=== PATIENT | female | born 1975 | race Caucasian/White ===

== ENCOUNTER 2018-06-17 07:47 | Emergency (ER) | payer BC ==
[~2018-06-17] VITALS: Ht 162.6 cm; Wt 60.3 kg
[~2018-06-17 07:47] MED LIST: ESTR2 PO; HYOS.125 SL; IBUP600 PO; LINZESS145 MCG PO; NORT25 PO; Naltrexone HCl50 MG PO; OMEP20ER PO; ONDA4ODT MM; OXYACE5T PO; PARO10 PO; PRED20 PO; RXOXYACE PO; TRAM50 PO
[2018-06-17] MEDS ORDERED: DICL75ER PO (08:32)
== END 2018-06-17 09:37 | disposition home or self-care (01) ==
LOC: ER 07:47
DX: R53.81 Other malaise (principal); R51 Headache; Z79.899 Other long term (current) drug therapy; Z87.891 Personal history of nicotine dependence
CPT/HCPCS: 99282

== ENCOUNTER 2019-03-16 06:38 | Day surgery (SDC) | payer BC ==
[~2019-03-16] VITALS: Ht 162.6 cm; Wt 60.0 kg
[~2019-03-16 06:38] MED LIST changes: +DICL75ER PO
[2019-03-16] MEDS ORDERED: TRAM50 PO (07:12)
== END 2019-03-16 09:01 | disposition home or self-care (01) ==
LOC: ORSCSDS 06:38
PROVIDERS: Student in an Organized Health Care Education/Training Program
PROC: 0DB98ZX Excision of Duodenum, Via Natural or Artificial Opening Endoscopic, Diagnostic (ICD-10-PCS; principal; 2019-03-16 08:00)
PROC: 0DB68ZX Excision of Stomach, Via Natural or Artificial Opening Endoscopic, Diagnostic (ICD-10-PCS; principal; 2019-03-16 08:00)
PROC: 0DBM8ZX Excision of Descending Colon, Via Natural or Artificial Opening Endoscopic, Diagnostic (ICD-10-PCS; principal; 2019-03-16 08:00)
PROC: 0DBE8ZX Excision of Large Intestine, Via Natural or Artificial Opening Endoscopic, Diagnostic (ICD-10-PCS; principal; 2019-03-16 08:00)
PROC: 0DB58ZX Excision of Esophagus, Via Natural or Artificial Opening Endoscopic, Diagnostic (ICD-10-PCS; principal; 2019-03-16 08:00)
PROC: 0DBB8ZX Excision of Ileum, Via Natural or Artificial Opening Endoscopic, Diagnostic (ICD-10-PCS; principal; 2019-03-16 08:00)
DX: R13.10 Dysphagia, unspecified (principal); K21.9 Gastro-esophageal reflux disease without esophagitis; R10.9 Unspecified abdominal pain; R19.4 Change in bowel habit; K63.89 Other specified diseases of intestine; K29.70 Gastritis, unspecified, without bleeding; D12.4 Benign neoplasm of descending colon; K57.30 Diverticulosis of large intestine without perforation or abscess without bleeding; K64.8 Other hemorrhoids; K64.4 Residual hemorrhoidal skin tags; F17.210 Nicotine dependence, cigarettes, uncomplicated; Z79.899 Other long term (current) drug therapy
CPT/HCPCS: 88305; 88342; J0461; J1980; J2405; J2704; J7120

== ENCOUNTER → 2020-08-09 | Outpatient (CLI) | payer BC | END | disposition home or self-care (01) | LOC: LAB SHORT 11:32 → PLD 11:32 | DX: D22.5 Melanocytic nevi of trunk (principal) | CPT/HCPCS: 88305 ==

== ENCOUNTER 2021-06-25 12:09 | Emergency (ER) | payer OTHER ==
[~2021-06-25] VITALS: Ht 165.1 cm; Wt 61.2 kg
[2021-06-25] MEDS ORDERED: PROM25 PO (12:31)
== END 2021-06-25 12:31 | disposition home or self-care (01) ==
LOC: ER 12:09
DX: U07.1 COVID-19 (principal); Z79.899 Other long term (current) drug therapy
CPT/HCPCS: 99284

== ENCOUNTER 2021-06-27 06:49 | Emergency (ER) | payer OTHER ==
[~2021-06-27] VITALS: Ht 165.1 cm; Wt 61.2 kg
[~2021-06-27 06:49] MED LIST changes: +PROM25 PO
[2021-06-27] MEDS ORDERED: DEXA2 PO (09:13)
[2021-06-27 10:07] LABS: BASOPHILS ABSOLUTE AUTO 0.01 K/mm3 (0.00-0.23); BASOPHILS PERCENT AUTO 0 % (0-2); EOSINOPHILS PERCENT AUTO 0 % (0-6); Hematocrit 36.4 % (33.0-51.0); Hemoglobin 12.5 g/dL (11.5-16.0); IMMATURE GRAN ABSOLUTE AUTO 0.01 K/mm3 (0.00-0.10); IMMATURE GRAN PERCENT AUTO 0 % (0-1); LYMPHOCYTES ABSOLUTE AUTO 0.63 K/mm3 (0.84-5.20); LYMPHOCYTES PERCENT AUTO 17 % (21-46); MONOCYTES ABSOLUTE AUTO 0.27 K/mm3 (0.16-1.47); MONOCYTES PERCENT AUTO 7 % (4-13); Mean Corpuscular HGB 33.2 pg (26.0-34.0); Mean Corpuscular HGB Conc 34.3 g/dL (31.5-36.5); Mean Corpuscular Volume 97 fL (80-100); NEUTROPHILS ABSOLUTE AUTO 2.79 K/mm3 (1.96-9.15); NEUTROPHILS PERCENT AUTO 75 % (41-73); Platelet Count 210 K/mm3 (150-400); RDW Coefficient Variation 12.9 % (11.7-14.2); Red Blood Cell Count 3.77 M/mm3 (3.80-5.20); White Blood Cell Count 3.71 K/mm3 (4.00-11.30)
[2021-06-27 10:16] LABS: Anion Gap 7 mmol/L (6-16); Blood Urea Nitrogen 5 mg/dL (8-24); Bun/Creatinine Ratio 10.5 (12.0-20.0); CO2, Blood 27 mmol/L (21-32); Calcium, Blood 8.1 mg/dL (8.5-10.1); Chloride, Blood 100 mmol/L (98-108); Creatinine, Blood 0.48 mg/dL (0.40-1.00); Glomerular Filtration Rate >60 (60-); Glucose, Blood 103 mg/dL (70-99); Potassium, Blood 4.2 mmol/L (3.5-5.5); Sodium, Blood 134 mmol/L (136-145); Troponin I <0.015 ng/mL (0.000-0.040)
== END 2021-06-27 11:15 | disposition home or self-care (01) ==
LOC: ER 06:49
PROVIDERS: Emergency Medicine
DX: U07.1 COVID-19 (principal); R09.02 Hypoxemia; R00.0 Tachycardia, unspecified; J12.9 Viral pneumonia, unspecified; Z88.8 Allergy status to other drugs, medicaments and biological substances; Z79.899 Other long term (current) drug therapy
CPT/HCPCS: 71260; 80048; 84484; 85025; 99284-25; Q9967

== ENCOUNTER 2021-06-30 10:12 | Emergency (ER) | payer OTHER ==
[~2021-06-30] VITALS: Ht 165.1 cm; Wt 61.7 kg
[~2021-06-30 10:12] MED LIST changes: +DEXA2 PO
== END 2021-06-30 14:45 | disposition home or self-care (01) ==
LOC: ER 10:12
DX: U07.1 COVID-19 (principal); Z99.81 Dependence on supplemental oxygen; Z79.899 Other long term (current) drug therapy; Z88.8 Allergy status to other drugs, medicaments and biological substances
CPT/HCPCS: 99284